=== PATIENT | female | born 1955 | race Caucasian/White ===

== ENCOUNTER 2018-04-11 20:06 | Observation (INO) ==
--- NOTE | 2018-04-11 20:20 | Anesthesia Evaluation PreOp ---
Date of Encounter: 04/11/18 Time of Encounter: 20:18 - Past History Planned Operation: EGD Cardiac History: Denies any Significant Hx Pulmonary History: Asthma INTERNATIONAL STUDENT COUNSELOR History: Denies Any Significant HX Other Medical History: Denies Any Significant HX Anesthesia History: No Prior Anesthetic Complications, Past Anesthesia (EGD) : No Alcohol Use: none Drug use: none Medications and Allergies Albuterol Sulfate [Proair Respiclick] 1 puff IH Q4-6H PRN 01/14/15 [History] Albuterol Neb [Proventil Neb] 2.5 mg IH Q4-6H PRN 09/08/15 [History] Ipratropium Neb [Atrovent Neb] 0.5 mg IH Q4-6H PRN 09/08/15 [History] Fluticasone/Vilanterol [Breo Ellipta 100-25 Mcg INH] 1 each IH DAILY 04/11/18 [History] Allergy/AdvReac Type Severity Reaction Status Date / Time No Known Allergies Allergy Verified 04/11/18 16:33 - Meds/Allergy Pre-op Review Medications Reviewed: Yes Allergies Reviewed: Yes Beta Blockers on Current Med List: No Anesthesia Results - Labs Laboratory Tests 09/09/15 09/09/15 09/09/15 04:07 04:07 04:07 Hgb 12.8 Hct 38.8 INR 1.0 Creatinine 0.78 Anesthesia Exam O2 Sat Height 1.65 m Weight 84.822 kg O2 Sat by Pulse Oximetry 98 Vital Signs Temp Pulse Resp BP Pulse Ox 98.3 F 95 18 155/88 98 04/11/18 20:14 04/11/18 20:14 04/11/18 20:14 04/11/18 20:14 04/11/18 20:14 NPO (# of Hours): ate at 1330 today Pain Scale: 0 Pain Scale Used: Numeric (1 - 10) - HEENT Pupil (Motor): Pupils equal, EOMI Mallampati: II Teeth: Normal Oral Opening: Greater than 3 - INTERNATIONAL STUDENT COUNSELOR LOC: Oriented INTERNATIONAL STUDENT COUNSELOR Motor: Normal RUE, Normal LUE, Normal RLE, Normal LLE, Normal Face INTERNATIONAL STUDENT COUNSELOR Sensory: Normal: RUE, LUE, RLE, LLE, Face - Cardiac Rhythm: Regular Murmur: None JVD: No Carotid Bruit: No - Pulmonary Breath Sounds: bilateral Clear Respiratory Effort: Symmetrical Anesthesia Assess/Plan ASA Score: 2 Level of consciousness: Cooperative Anesthetic Plan: General Autologous Blood: Yes Monitoring Plan: Standard Monitors Recovery Plan: PACU
--- NOTE | 2018-04-11 20:24 | General Surg History&Physical ---
Date of Encounter: 04/11/18 Time of Encounter: 20:00 Assessment and Plan (1) Esophageal obstruction due to food impaction Current Visit: Yes Status: Acute The assessment and plan as outlined above was discussed with the patient and/or family members who expressed understanding and agreement. All questions were answered. The patient likely has food impaction above a esophageal stenosis. She is unable to swallow liquids. We will plan urgent upper endoscopy and removal of food bolus with dilation of any underlying stenosis History of Present Illness Chief complaint: Esophageal stenosis food bolus HPI: Ms. Vasquez is a 63 year old female Who is had multiple previous episodes of food bolus and esophageal stenosis. She has never had an elective dilation. She developed an inability to swallow saliva or liquids after eating a chicken sandwich this evening. She denies vomiting blood. She now presents for urgent evaluation of food bolus with suspected esophageal stenosis. We will plan urgent upper endoscopy with food bolus extraction. I discussed the risks and benefits with her and she wishes to proceed Past Med Surg Social Fam HX - Past Medical History Medical history: asthma, COPD Psychiatric history: no psych history - Past Surgical History Surgical History: other (EGD with food bolus extraction previously. The last was in 2017) - Social History Smoking Status: Never smoker Smokeless Tobacco Status: No Alcohol use: none Drug use: none Medications and Allergies Albuterol Sulfate [Proair Respiclick] 1 puff IH Q4-6H PRN 01/14/15 [History] Albuterol Neb [Proventil Neb] 2.5 mg IH Q4-6H PRN 09/08/15 [History] Ipratropium Neb [Atrovent Neb] 0.5 mg IH Q4-6H PRN 09/08/15 [History] Fluticasone/Vilanterol [Breo Ellipta 100-25 Mcg INH] 1 each IH DAILY 04/11/18 [History] Allergy/AdvReac Type Severity Reaction Status Date / Time No Known Allergies Allergy Verified 04/11/18 16:33 Review of Systems All systems PM: The remainder of the systems were reviewed and are negative General Surgery Exam - General physical appearance well developed, well nourished, no distress - ENT Other (Drooling.) - Neck no masses, no bruits, trachea midline, no lymphadectomy, no venous distension - Respiratory normal expansion, normal respiratory effort, clear to percussion, clear to auscultation - Cardiovascular Cardiovascular exam: Present: RRR, no murmurs/rubs/gallops - Abdomen Abdomen general surgery: Present: bowel sounds present, soft, non tender - Neurologic Present: CN 2-12 grossly intact, normal coordination, normal sensation - Psychiatric Psychiatric general surgery: Present: appropriate, oriented to person, oriented to place, oriented to time, speech is normal, memory intact Results - Labs All other labs normal.
[2018-04-11] MEDS ORDERED: *HR* Succinylcholine 200 MG/10 ML VIAL IVP ONE (20:25)
[2018-04-11] MEDS ORDERED: Dexamethasone 4 MG/ML VIAL ONE (20:25)
[2018-04-11] MEDS ORDERED: Ondansetron 4 MG/2 ML VIAL ONE (20:25)
[2018-04-11] MEDS ORDERED: Lidocaine -MPF 2% 2 ML VIAL ONE (20:25)
[2018-04-11] MEDS ORDERED: *HR* Propofol 200 MG/20 ML VIAL IVP ONE (20:27)
[2018-04-11] MEDS ORDERED: Lidocaine -MPF 4% 5 ML AMPUL ONE (20:30)
[2018-04-11] MEDS ORDERED: Albuterol 2.5 MG/3 ML NEBULIZER ONE (20:45)
[2018-04-11] MEDS ORDERED: Simethicone 40 MG/0.6 ML MLS IR ONE (20:52)
[2018-04-11] MEDS ORDERED: Albuterol 2.5 MG/3 ML NEBULIZER IH ONE (20:56)
[2018-04-11] MEDS ORDERED: Ringers Solution, Lactated 1,000 ML IVC SCH (21:00)
--- NOTE | 2018-04-11 21:29 | Event Note ---
Date of Encounter: 04/11/18 Time of Encounter: 21:25 The patient underwent upper endoscopy with esophageal dilatation documented in [facility]. On repeat examination of the mucosa after esophageal dilatation there was a single tear in the mucosa. On reexamination of this area I thought there may have been a small amount of emphysema under a portion of the mucosa. The patient will be placed in observation status and chest x-ray will be ordered. She may require esophageal evaluation with Gastrografin swallow tomorrow. I will also order a CBC and basic metabolic panel for the morning.
--- NOTE | 2018-04-11 21:37 | Anesthesia Evaluation Post Op ---
Date of Encounter: 04/11/18 Time of Encounter: 21:38 - Vital Signs Vital Signs: Vital Signs/O2 Sat, Most Current Temp Pulse Resp BP Pulse Ox 98.1 F 100 14 104/69 96 04/11/18 21:22 04/11/18 21:32 04/11/18 21:32 04/11/18 21:32 04/11/18 21:32 - Lungs Lungs: Clear Ascult./Percussion - Airway Airway: Non-obstructed - Cardiovascular Regular Rate - Mental Status Mental Status: Alert & Oriented, Answers Appropriately - Pain Pain Scale: 0 Pain Scale used: Numeric (1 - 10) - Nausea Vomiting Nausea Vomiting: Not Present - Hydration Hydration: Ice chips, Has not voided - Discharge PostOp Status: Transfer Patient to floor
[2018-04-11] MEDS ORDERED: OXYCODONE Oral CONC 10 MG/0.5 ML ORAL.SYG SL PRN (23:33)
[2018-04-11] MEDS ORDERED: *HR* OxyCODONE/APAP 5/325 TABLET PO PRN (23:33)
[2018-04-11] MEDS ORDERED: Ondansetron 4 MG/2 ML VIAL IVP PRN (23:33)
[2018-04-11] MEDS ORDERED: 0.9 % Sodium Chloride 1,000 ML ONE (23:33)
[2018-04-11] MEDS ORDERED: 0.9 % Sodium Chloride 1,000 ML IVC SCH (23:45)
[2018-04-12 03:36] VITALS: BP 97/64
[2018-04-12 07:51] LABS: Basophils % 0.2 %; Hematocrit 38.5 % (35.3-44.9); Hemoglobin 12.5 g/dL (11.5-15.4); Immature Granulocytes % 0.3 % (0-4); Lymphocytes # 0.9 K/mcL (0.6-4.6); Lymphocytes % 7.1 %; Mean Corpuscular HGB Conc 32.5 g/dL (31.6-35.5); Mean Corpuscular Hemoglobin 30.2 pg (28.0-33.3); Monocytes # 0.4 K/mcL (0.0-1.3); Monocytes % 2.9 %; Neutrophils # 11.6 K/mcL (1.6-8.9); Platelet Count 353 K/mcL (140-400); Red Blood Count 4.14 M/mcL (3.82-4.97); Red Cell Distribution Width 13.2 % (11.5-14.5); Segmented Neutrophils % 89.5 %
[2018-04-12 07:59] LABS: BUN/Creatinine Ratio 16 (6-26); Blood Urea Nitrogen 10 mg/dL (8-23); Calcium 9.3 mg/dL (8.6-10.3); Carbon Dioxide 20 mEq/L (23-29); Chloride 110 mEq/L (98-107); Glucose 164 mg/dL (70-105); Osmolality,Calculated 291 (280-300); Potassium 3.8 mEq/L (3.5-5.1); Sodium 139 mEq/L (136-145); eGFR For Non-African Americans > 60 (> 60)
--- NOTE | 2018-04-12 08:33 | Discharge Summary ---
Outpatient Proc Discharge Plan - Plan Instructions: Esophageal Stricture (DC), Esophageal Dilation (DC) Additional Instructions: Follow a soft diet for two weeks or longer if you feel you are having difficulty swallowing. Home Medications: Albuterol Sulfate [Proair Respiclick] 1 puff IH Q4-6H PRN 01/14/15 [History] Albuterol Neb [Proventil Neb] 2.5 mg IH Q4-6H PRN 09/08/15 [History] Ipratropium Neb [Atrovent Neb] 0.5 mg IH Q4-6H PRN 09/08/15 [History] Fluticasone/Vilanterol [Breo Ellipta 100-25 Mcg INH] 1 each IH DAILY 04/11/18 [History] Forms (Work/Release): ED Satisfaction Letter, Work/School Release - Patient Status Disposition: Home, Self-Care - Discharge Instructions Follow Up With: Cipriano Hooper MD [Non-Partnered Physician] - 05/11/18 9:00 am Forms: ED Satisfaction Letter, Work/School Release Additional Instructions: Follow a soft diet for two weeks or longer if you feel you are having difficulty swallowing. - Diet and Activity Diet: other (soft diet)
== END 2018-04-12 13:10 | disposition home or self-care (01) ==
LOC: EMEROOARM 20:06 → 3ANU 20:06
PROVIDERS: ADMIT Surgery; ATTEND Surgery
PROC: ENDOEDS (2018-04-11 21:00)